=== PATIENT | male | born 2000 | race Hispanic/Latino ===

== ENCOUNTER 2022-03-20 20:54 | Emergency (ER) | payer OTHER ==
[~2022-03-20] VITALS: Ht 180.3 cm; Wt 93.9 kg
[2022-03-20 21:31] LABS: BASOPHILS % (AUTO) 0.1 % (0.0-5.0); EOSINOPHILS % (AUTO) 1.1 % (0.0-8.0); MEAN CORPUSCULAR HEMOGLOBIN 26.6 pg (27.0-33.0); MEAN CORPUSCULAR HGB CONC 34.8 g/dL (32.0-36.0); MEAN CORPUSCULAR VOLUME 76.3 fL (79-99); MONOCYTES % (AUTO) 7.7 % (3.0-13.0); NEUTROPHILS % (AUTO) 83.8 % (40.0-77.0); PLATELET COUNT (AUTO) 176 K/uL (130-400); RED BLOOD CELL COUNT(AUTO) 6.29 MIL/uL (4.50-6.20); RED CELL DISTRIBUTION WIDTH 12.9 % (11.0-15.5); WHITE BLOOD COUNT (AUTO) 13.9 K/uL (4.8-10.8)
[2022-03-20 21:32] LABS: APPEARANCE,URINE Clear (CLEAR); BILIRUBIN,URINE Negative (NEGATIVE); COLOR,URINE Yellow (YELLOW); GLUCOSE, URINE (UA) Negative (NEGATIVE); KETONES,URINE >=80 mg/dL (NEGATIVE); LEUKOCYTE ESTERASE ,URINE Negative (NEGATIVE); NITRATE,URINE Negative (NEGATIVE); OCCULT BLOOD,URINE Negative (NEGATIVE); PH,URINE 5.5 (5.0-8.0); PROTEIN,URINE Trace mg/dL (NEGATIVE)
[2022-03-20 21:44] LABS: CREATININE 0.9 mg/dL (0.5-1.5); POTASSIUM 3.2 mmol/L (3.5-5.1)
[2022-03-20 21:47] LABS: AMPHET/METH SCREEN,URINE NEGATIVE (NEGATIVE); BARBITURATE SCREEN, URINE NEGATIVE (NEGATIVE); BENZODIAZEPINES SCREEN,URINE NEGATIVE (NEGATIVE); CANNABINOID SCREEN,URINE POSITIVE (NEGATIVE); COCAINE SCREEN,URINE NEGATIVE (NEGATIVE); OPIATE SCREEN,URINE NEGATIVE (NEGATIVE); PHENCYCLIDINE SCREEN,URINE NEGATIVE (NEGATIVE)
[2022-03-20 21:50] LABS: ALBUMIN 4.5 g/dL (3.5-5.0); BILIRUBIN,TOTAL 0.5 mg/dL (0.2-1.0); TOTAL PROTEIN, SERUM 7.9 g/dL (6.0-8.3)
[2022-03-20] MEDS ORDERED: IBUP-2070 PO (22:15)
[2022-03-20 22:25] VITALS: BP 139/84
[2022-03-20] MEDS ORDERED: SOLU-MEDROL 125MG VIAL IVP ONE (22:30)
[2022-03-20] MEDS ORDERED: KETOROLAC 30MG VIAL (30MG/ML) IVP ONE (22:30)
== END 2022-03-20 22:25 | disposition home or self-care (01) ==
LOC: EDH 20:54
DX: M94.0 Chondrocostal junction syndrome [Tietze] (principal); F17.200 Nicotine dependence, unspecified, uncomplicated; Z79.1 Long term (current) use of non-steroidal anti-inflammatories (NSAID); Z79.52 Long term (current) use of systemic steroids
CPT/HCPCS: 36415; 80053; 80305; 81003; 83690; 84484; 85025; 96374; 96375; 99284; J1885; J2930; 93005

== ENCOUNTER 2023-03-31 20:44 | Emergency (ER) | payer OTHER ==
[~2023-03-31] VITALS: Ht 180.3 cm; Wt 90.7 kg
[~2023-03-31 20:44] MED LIST: IBUP-2070 PO
[2023-03-31 20:50] VITALS: BP 165/109
[2023-03-31] MEDS ORDERED: LIDOCAINE HCL 1% 20 ML VIAL MISC SCH (23:00)
[2023-03-31] MEDS ORDERED: ORPHENADRINE CITRATE 30 MG/ML ML IJ ONE (23:00)
[2023-03-31] MEDS ORDERED: KETOROLAC 60 MG VIAL (30MG/ML) IM ONE (23:00)
[2023-03-31] MEDS ORDERED: IBUP-2077 PO (23:34)
[2023-03-31] MEDS ORDERED: CYCL10TA16 PO (23:34)
== END 2023-04-01 00:11 | disposition home or self-care (01) ==
LOC: EDH 20:44
DX: S01.81XA Laceration without foreign body of other part of head, initial encounter (principal); S16.1XXA Strain of muscle, fascia and tendon at neck level, initial encounter; S39.012A Strain of muscle, fascia and tendon of lower back, initial encounter; Z88.6 Allergy status to analgesic agent; V89.2XXA Person injured in unspecified motor-vehicle accident, traffic, initial encounter; Y93.89 Activity, other specified; Y92.89 Other specified places as the place of occurrence of the external cause; Y99.8 Other external cause status
CPT/HCPCS: 99283; 72050; 69210; 96372; J1885

== ENCOUNTER 2023-04-06 20:18 | Emergency (ER) | payer OTHER ==
[~2023-04-06] VITALS: Ht 182.9 cm; Wt 106.1 kg
[~2023-04-06 20:18] MED LIST changes: +CYCL10TA16 PO; +IBUP-2077 PO
[2023-04-06 20:50] VITALS: BP 127/74
== END 2023-04-06 20:53 | disposition home or self-care (01) ==
LOC: EDH 20:18
DX: S01.81XD Laceration without foreign body of other part of head, subsequent encounter (principal); F17.200 Nicotine dependence, unspecified, uncomplicated; Z79.899 Other long term (current) drug therapy; X58.XXXD Exposure to other specified factors, subsequent encounter
CPT/HCPCS: 99281